=== PATIENT | male | born 1945 | race Caucasian/White ===

== ENCOUNTER 2018-06-08 13:24 | Inpatient (IN) | payer MEDICARE, OTHER, SELFPAY ==
[2018-06-08] VITALS (10 sets, daily range): BP systolic 127–165; BP diastolic 73–97; PULSE 71–100; RESP 16–18; TEMP 36.4–36.6; O2SAT 96–99; BMI 26.9; BMI 28.5
--- NOTE | 2018-06-08 14:09 | RAD_ITS ---
STUDY: X-RAY CHEST REASON FOR EXAM: Male, 72 years old. Syncopal episode TECHNIQUE: Single AP portable view of the chest. COMPARISON: January 19, 2016 chest x-ray FINDINGS: Lungs are underexpanded. The lungs appear grossly clear. There is no demonstrated pleural abnormality. Normal size heart. Normal mediastinum and yang. Normal visualized pulmonary arteries. Normal visualized aortic arch and descending thoracic aorta. There are diffuse degenerative changes of the visualized thoracic spine. Normal visualized ribs, clavicles, and shoulders. There is no demonstrated abnormality of the visualized soft tissue structures of the upper abdomen. RAD/Chest 1 View (Portable) IMPRESSION: Underexpansion of the lungs. No evidence of acute focal infiltrate. Electronically Signed: Gena Hernandez MD at 14:33 EDT Tel , Service support ,
--- NOTE | 2018-06-08 14:23 | EKG12_ITS ---
Test Reason : SYNCOPE Blood Pressure : / mmHG Vent. Rate : 073 BPM Atrial Rate : 073 BPM P-R Int : 188 ms QRS Dur : 110 ms QT Int : 404 ms P-R-T Axes : 061 -45 034 degrees QTc Int : 445 ms Normal sinus rhythm Left anterior fascicular block Abnormal ECG Confirmed by JARAD REYES, RADHA ([id number]), newspaper editor JYOTI ASTORGA ([id number]) on 06/10/2018 7:57:30 AM Referred By: Confirmed By:RADHA ABRAHAM MD
[2018-06-08 14:37] LABS: Absolute Lymphocyte Count 1.66 X10^3/ul (0.83-4.51); Absolute Neutrophil Count 4.5 X10^3/uL (2.0-7.7); Basophil# 0.03 X10^3/uL; Basophil% 0.4 % (0-1); Eosinophil# 0.27 X10^3/uL; Eosinophils% 3.8 % (0-5); Hematocrit 43.7 % (40-54); Hemoglobin 14.8 g/dl (13.0-16.5); Lymphocyte # 1.66 X10^3/ul (4.0); Lymphocyte % 23.6 % (19-41); Mean Corp Hgb Conc 33.9 g/gl (32-36); Mean Corpuscular Hgb 29.8 pg (27.0-32.0); Mean Corpuscular Volume 87.9 fL (80-94); Mean Platelet Vol. 9.4 fl (6.2-12.0); Monocyte% 7.1 % (0-10); Neutrophil # 4.51 X10^3/uL (2.7-7.7); Neutrophil % 64.4 % (47-70); POSITIVE COUNT NO; POSITIVE DIFFERENTIAL NO; POSITIVE MORPHOLOGY NO; Platelet Count 188 K/mm3 (150-450); RBC Distribution Width CV 13.5 % (11.6-14.6); Red Blood Count 4.97 M/mm3 (4.6-6.2)
[2018-06-08 14:52] LABS: Anion Gap 5 (5-15); BUN 16 mg/dL (7-18); BUN/Creat Ratio 17.2 RATIO (10-20); Calcium,Total 8.6 mg/dL (8.5-10.1); Chloride 105 mmol/L (98-107); Creatinine, Serum 0.93 mg/dL (0.70-1.30); EST Glomerular Filtration Rate 85 mL/min (>60); Est Glom Filt Rate - Afr Amer 103 mL/min (>60); Estimated Creatinine Clearance 76.31 ml/min; Glucose 101 mg/dL (74-106); Magnesium 2.1 mg/dL (1.6-2.6); Potassium 3.6 mmol/L (3.5-5.1); Sodium Level 139 mmol/L (136-145)
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
--- NOTE | 2018-06-08 15:21 | EKG12_ITS ---
Test Reason : ABDOMINAL Blood Pressure : / mmHG Vent. Rate : 088 BPM Atrial Rate : 088 BPM P-R Int : 186 ms QRS Dur : 108 ms QT Int : 390 ms P-R-T Axes : 044 -47 036 degrees QTc Int : 471 ms Normal sinus rhythm Left anterior fascicular block Abnormal ECG Confirmed by JARAD REYES, RADHA ([id number]), news videotape editor JYOTI ASTORGA ([id number]) on 06/10/2018 7:57:47 AM Referred By: Confirmed By:RADHA ABRAHAM MD
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
--- NOTE | 2018-06-08 16:32 | ECHOD_ITS ---
Reason For Study: Syncope Procedure This was a 2D Doppler, Color Flow transthoracic echocardiogram. Exam performed portable in patient room. Left Ventricle Normal LV size. Left ventricular systolic function is normal. The estimated ejection fraction is 60 %. Stage 1 diastolic dysfunction. No regional wall motion abnormalities noted. Right Ventricle Normal RV size. Normal systolic function. Atria Normal left atrium. Normal right atrium. Mitral Valve Normal mitral valve. Tricuspid Valve Normal tricuspid valve. Mild (1+) tricuspid valve insufficiency. Pulmonary artery systolic pressure is 30 mmHg. Aortic Valve Normal aortic valve. Trisinus/trileaflet aortic valve. Pulmonic Valve Normal pulmonic valve. Great Vessels Normal aortic root. The pulmonary artery is normal size. Normal inferior vena cava. Pericardium/Pleural No pericardial effusion. MMode/2D Measurements & Calculations LVIDd: 4.7 cm IVSd: 1.2 cm Ao root diam: 3.9 cm LVIDs: 3.0 cm LVPWd: 1.1 cm RVDd: 3.9 cm FS: 35.3 % LAV(MOD-bp): 40.9 ml LA A4 area: 15.6 cm2 LA dimension(2D): 4.0 cm LAV(MOD-bp) Indexed: 19.7 ml/m2 LAV(MOD-sp2): 39.4 ml LAV(MOD-sp4): 39.1 ml RA A4 area: 17.2 cm2 Time Measurements MV dec time: 0.17 sec Doppler Measurements & Calculations MV E max vik: 63.8 cm/sec Lat Peak E' Vik: 7.0 cm/sec Med Peak E' Vik: 7.6 cm/sec MV A max vik: 80.0 cm/sec E/E' lat: 9.2 E/E' med: 8.4 MV E/A: 0.80 Ao V2 max: 158.2 cm/sec LV V1 max: 106.0 cm/sec PA V2 max: 106.8 cm/sec Ao max P.0 mmHg LV V1 max P.5 mmHg PI end-d vik: 82.6 cm/sec TR max vik: 253.9 cm/sec TR max P.8 mmHg Interpretation Summary Normal LV size. Left ventricular systolic function is normal. The estimated ejection fraction is 60 %. Stage 1 diastolic dysfunction. Mild (1+) tricuspid valve insufficiency. Pulmonary artery systolic pressure is 30 mmHg. Ordering Physician: Eitan Novoa Referring Physician: Jason Bingham Performed By: Bernice Moctezuma, RIKCS, RVT
[2018-06-08 17:06] LABS: Thyroid Stim Hormone (TSH) 3.34 uIU/mL (0.358-3.74)
[2018-06-08] MEDS: Atorvastatin Calcium 10 MG Tablet PO (21:17)
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
[2018-06-08 23:05] LABS: Bedside Glucose 120 mg/dL (70-110)
--- NOTE | 2018-06-08 23:38 | NURSING ---
This rn in completing assessment, vitals and evenings meds at 2114. Pt with no needs or complaints. When this rn going to exit room, pt stated he felt funny again like he did before he was admitted to the hospital. Pt was dizzy, nauseated, pale and diaphoretic. This rn to get vitals again and when this rn turned around pt was unresponsive. [employer] was called, see [employer] documentation. Family at bedside and aware of plan of care for pt.
--- NOTE | 2018-06-08 23:44 | EKG12_ITS ---
Test Reason : Blood Pressure : / mmHG Vent. Rate : 082 BPM Atrial Rate : 082 BPM P-R Int : 188 ms QRS Dur : 108 ms QT Int : 394 ms P-R-T Axes : 050 -42 035 degrees QTc Int : 460 ms Normal sinus rhythm Left axis deviation Abnormal ECG When compared with ECG of 08-JUN-2018 21:30, MANUAL COMPARISON REQUIRED, DATA IS UNCONFIRMED Confirmed by JARAD REYES, RADHA ([id number]), assignment desk editor JYOTI ASTORGA ([id number]) on 06/10/2018 8:06:12 AM Referred By: Confirmed By:RADHA ABRAHAM MD
[2018-06-09] VITALS (20 sets, daily range): BP systolic 119–174; BP diastolic 69–99; PULSE 75–93; RESP 16–18; TEMP 36.5–37.1; O2SAT 94–97
[2018-06-09 05:10] LABS: Absolute Neutrophil Count 6.7 X10^3/uL (2.0-7.7); Basophil# 0.03 X10^3/uL; Basophil% 0.3 % (0-1); Eosinophil# 0.16 X10^3/uL; Eosinophils% 1.6 % (0-5); Hemoglobin 14.9 g/dl (13.0-16.5); Lymphocyte % 23.5 % (19-41); Mean Corp Hgb Conc 33.9 g/gl (32-36); Mean Corpuscular Hgb 29.3 pg (27.0-32.0); Mean Corpuscular Volume 86.4 fL (80-94); Mean Platelet Vol. 9.5 fl (6.2-12.0); Monocyte# 0.56 X10^3/uL; Monocyte% 5.7 % (0-10); Neutrophil # 6.71 X10^3/uL (2.7-7.7); Neutrophil % 68.7 % (47-70); Platelet Count 225 K/mm3 (150-450); RBC Distribution Width CV 13.6 % (11.6-14.6); RBC Distribution Width SD 42.4 fl (35.1-43.9); Red Blood Count 5.09 M/mm3 (4.6-6.2); White Blood Count 9.8 K/mm3 (4.4-11.0)
[2018-06-09 05:19] LABS: Anion Gap 7 (5-15); BUN 14 mg/dL (7-18); BUN/Creat Ratio 16.9 RATIO (10-20); Calcium,Total 8.5 mg/dL (8.5-10.1); Chloride 108 mmol/L (98-107); Creatinine, Serum 0.83 mg/dL (0.70-1.30); EST Glomerular Filtration Rate 98 mL/min (>60); Est Glom Filt Rate - Afr Amer 118 mL/min (>60); Estimated Creatinine Clearance 85.51 ml/min; Glucose 112 mg/dL (74-106); Potassium 3.6 mmol/L (3.5-5.1); Sodium Level 141 mmol/L (136-145)
[2018-06-09 05:41] LABS: POSITIVE COUNT NO; POSITIVE DIFFERENTIAL NO; POSITIVE MORPHOLOGY NO
[2018-06-09 05:53] LABS: International Normalized Ratio 1.2; Partial Thromboplast Time 27.7 Seconds (24.1-36.2); Prothrombin Time (Protime)PT. 15.2 SECONDS (11.7-14.9)
--- NOTE | 2018-06-09 05:55 | EKG12_ITS ---
Test Reason : CREDIT DEPARTMENT MANAGER Blood Pressure : / mmHG Vent. Rate : 084 BPM Atrial Rate : 084 BPM P-R Int : 184 ms QRS Dur : 112 ms QT Int : 382 ms P-R-T Axes : 057 -35 034 degrees QTc Int : 451 ms Sinus rhythm with occasional Premature ventricular complexes Left axis deviation Abnormal ECG When compared with ECG of 08-JUN-2018 16:01, MANUAL COMPARISON REQUIRED, DATA IS UNCONFIRMED Confirmed by JARAD REYES, RADHA ([id number]), editor trade journal JYOTI ASTORGA ([id number]) on 06/10/2018 8:07:48 AM Referred By: GARETH Confirmed By:RADHA ABRAHAM MD
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
[2018-06-09] MEDS: Lisinopril 5 MG Tablet PO (09:31)
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
--- NOTE | 2018-06-09 11:41 | CASEMGMT ---
Pt is out of the dept for pacer placement at this time. This RN CM will attempt CM assessment later. [place] RN CM
--- NOTE | 2018-06-09 12:05 | CL.IE_ITS ---
Patient: EDSON SHEPHERD Study Date: 06/09/2018 Performing: Guy Max MD : [id number] Age: 72 Gender: male PROCEDURES PERFORMED [id number] PACER INSERT+DUAL LEADS INDICATIONS Syncope Other second degree AV block PROCEDURE DETAILS The patient was brought to the Catheterization Lab in the postabsorptive nonsedated state. [facility] consent was obtained prior to the procedure. Local anesthetic was given subcutaneously to the le ft subclavian region with Lidocaine 2%. Incision was made to the left upper chest. Access was achieve d and a guidewire was advanced into the left subclavian vein. PPM ventricular lead was inserted / pos itioned to right ventricular septal wall. PPM ventricular lead testing performed. PPM ventricular jamal d testing performed. The sheath was then removed. A peel-away sheath was inserted into the left subcl michele vein. PPM atrial lead was inserted / positioned to the right atrial appendage. PPM atrial lead testing performed. The Ventricular PM lead sutured in place with 3-0 Silk. The Ventricular PM lead patterson tured in place with 3-0 Silk. Device pocket was irrigated with antibiotic. PPM generator was attached to the lead(s) and inserted into the pocket. The PPM generator was sutured in place with 3-0 Vicryl. Subcutaneous closure was completed with 3-0 Vicryl. Skin closure was completed with 4-0 V icryl. The patient tolerated the procedure well. Estimated Blood Loss: < 10 mls IMPLANTED / EX-PLANTED DEVICES IMPLANTED DEVICE(S): PPM Generator - [employer]: [employer], Model # [id number] , Serial # [id number] PPM Atrial lead - [employer]: [employer], Model # 7741 52 cm , Serial # [id number] PPM Ventricular lead - [employer]: [employer], Model # 7742 52 cm , Serial # [id number] DEVICE PARAMETERS ATRIAL LEAD PARAMETERS: P wave (mV) - 8.6 Current (mA) - 1.1 threshold (V) - .7 impedence (OHMS) - 660 VENTRICULAR LEAD PARAMETERS: R wave (mV) - 25 current (mA) - .5 threshold (V) - .5 impedence (OHMS) - 1026 DEVICE PARAMETERS: Mode - ddd lower rate - 60 upper rate - 130 rate response off CONCLUSIONS / RECOMMENDATIONS Device Conclusions: Successful implantation of a dual chamber pacemaker Device Recommendations: Follow up with Primary Care Physician PROCEDURE MEDICATIONS Versed 1 mg IV Fentanyl 50 mcg IV Versed 1 mg IV Oxygen: 2 L/min via nasal cannula Signed By Guy Max MD On 06/09/2018 12:04:44 Guy Max MD
[2018-06-09] MEDS: hydroCHLOROthiazide 25 MG Tablet PO (12:35)
[2018-06-09] MEDS: Fenofibrate 145 MG Tablet PO (12:35)
[2018-06-09] MEDS: Aspirin 81 MG TAB.CHEW PO (12:35)
[2018-06-09] MEDS: 0.9% Normal Saline 1,000 ML 15 ML IV (12:35)
[2018-06-09] MEDS: 0.9% NaCl Peripheral Flush Adult/Peds IV (12:35)
--- NOTE | 2018-06-09 13:54 | CASEMGMT ---
KAMLESH ELY assessment: Face to Face with patient for initial transition planning/care coordination assessment. KAMLESH ELY introduced self and role at [facility], pt voices understanding and consents to assessment at this time. Pt is sitting up in bed in no distress at this time. Pt is A/Ox4 at this time and answers all questions appropriately at this time. Pt's at bedside during assessment. Care providers, pharmacy, and demographics verified/updated at this time. PCP: [facility] Specialists: Pt states currently as no specialists. Preferred Pharmacy: [facility] Insurance: [facility] A/B, MMO Prescription Benefit: Yes Living Will/HPOA: Pt states has LW/HPOA and is aware that they are not currently on file at [facility] at this time. Pt states that his , Katelynn Saeed, is HPOA. LNOK: Katelynn Saeed, ; Manuel Saeed, son; Mira Walden, daughter Living Arrangements: Pt states lives with in 3 story home and states no concerns at home at this time. Pt is independent with ADL's. Transportation: Pt states drives self and states no transportation concerns at this time. DME/HHC: Pt states has the following DME: walker, grab bars, and shower chair. Pt states no need for any further DME at this time. Pt states no hx of HHC or SNF at this time. Pt states no concerns with going home at time of discharge. Pt states is retired. Pt states does not smoke but does drink ETOH occasionally. Pt states no further concerns/needs at this time. CM to follow for any further discharge planning/needs. Advised pt to ask for CM if any further questions/concerns/needs arise, voices understanding. Pt Goal: Home Plan[place] KAMLESH ELY
[2018-06-09 14:22] LABS: M R Staph aureus DNA By PCR Negative (Negative); Probe Check PASS; Specimen Processing Control PASS
[2018-06-09] MEDS: Atorvastatin Calcium 10 MG Tablet PO (21:49)
[2018-06-10 03:01] VITALS: PULSE 77
[2018-06-10 03:45] VITALS: BP 134/88; PULSE 64; RESP 18; TEMP 36.5; O2SAT 97
[2018-06-10 07:44] VITALS: PULSE 78
--- NOTE | 2018-06-10 08:07 | RAD_ITS ---
STUDY: X-RAY CHEST REASON FOR EXAM: Male, 72 years old. Syncope. Pacemaker placement. TECHNIQUE: PA and lateral views of the chest. COMPARISON: Comparison is made with prior study dated June 08, 2018. FINDINGS: EKG electrodes are seen. The lungs are clear and expanded. Scattered calcified granulomas. There is no demonstrated pleural abnormality. Normal size heart. A left-sided dual-chamber pacemaker is seen and in good position. Normal mediastinum and yang. Normal visualized pulmonary arteries. Normal visualized aortic arch and descending thoracic aorta. There are degenerative changes of the visualized thoracic spine. Normal visualized ribs, clavicles, and shoulders. There is no demonstrated abnormality of the visualized soft tissue structures of the upper abdomen. RAD/Chest PA and Lateral IMPRESSION: Status post left-sided dual chamber pacemaker placement. There is no evidence of pneumothorax. The pacemaker leads are in good position. Electronically Signed: Jimi Bone, at 11:26 EDT , Service support ,
--- NOTE | 2018-06-10 08:43 | PN.CARD_ITS ---
Subjectve: Patient seen and evaluated. Appears to be doing well. Objective: Vital Signs Temp Pulse Resp BP Pulse Ox 97.7 F L 78 18 134/88 H 97 06/10/18 03:45 06/10/18 07:44 06/10/18 03:45 06/10/18 03:45 06/10/18 03:45 Oxygen Delivery Method Room Air Weight: 198 lb 13.711 oz Body Mass Index (BMI) 28.5 Intake and Output for Last 24 Hours 06/08/18 06/09/18 06/10/18 23:59 23:59 23:59 Intake Total 480 / 480 300 / 300 Output Total 1550 / 1550 1050 / 1050 Balance 480 / 480 -1250 / -1250 -1050 / -1050 General: Awake, Alert, Oriented x 3 HEENT: PERRL, EOMI, Sclera Non Icteric Neck: Supple, Good ROM, No Lymph Node Enlargement Lungs: Clear to auscultation Cardiovascular: Regular Rhythm, Normal S1, Normal S2, No Murmurs, No Rubs, No Gallops Vascular: No Carotid Bruits, Normal Femoral Pulses, Normal Radial Pulses, Normal Dorsalis Pedal Pulse, Normal Posterior Tibial Pulses Abdomen: Bowel Sounds Present, Soft, Non Tender, No HSM, No Organomegaly Extremities: No Cyanosis, No Clubbing, No edema Neurological: No Focal Motor or Sensory Deficit Rhythm: EKG: ECHO: Stress Test: Cardiac Cath: PCI: CT Surgery: Holter monitor: EPS: PPM: CXR: Chest CT Scan: Medical Necessity - Tobacco Use Smoking Status: Former smoker Tobacco Use: Non-smoker Assessment/Plan 1. 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 Chest x-ray demonstrates adequate placement and pacer check this morning demonstrates appropriate numbers. Discharge for outpatient follow-up. * Thank you for allowing me to participate in the care of your patient. Please don't hesitate to call if any issues arise
--- NOTE | 2018-06-10 08:43 | PCM.DC.PACE ---
Discharge Diet: No Restrictions Discharge Activity: May Not Drive May resume sexual activity in: 2 weeks Call your doctor if your incision/area has: Continuous Slow Oozing, Sudden Increased Bleeding, Increased Pain/ Swelling, Increased Redness, Foul Smelling Discharge, Swelling at the incision site Call your doctor if you observe: Fever of 101 or Higher, Shortness of breath, Dizziness, Fainting spells, Swelling in the ankles, Chest pain, Prolonged hiccoughing, Increased palpitations (irregular heartbeat) Suture Line Care: Avoid Pulling/Pushing, Avoid Pinching/Bending Cleanse incision/area with: Do not get Incision Wet, Keep Dressing Clean & Dry Additional Dressing/Incision Instructions:: When dressing is removed, wash and dry incision. Keep covered with a light bandage if it is rubbing against your clothing. Do not cover the incision with an airtight bandage. Change the bandage daily. Do not remove steri strips. The strips will fall off on their own. Additional Instructions: Signs and Symptoms to Report to Your Doctor at Once - call your doctor's office or Doctor's Registry ([phone]) Call 241 or go to the nearest Emergency Department if you feel you need urgent care. *Infection (fever, increased redness or swelling at the incision site, drainage from the incision increased pain at the pacemaker site) *Shortness of breath *Dizziness *Fainting spells *Swelling in the ankles *Chest pain *Prolonged hiccoughing *Increased palpitaitons (irregular heartbeat) Medications: Take your pain medication as directed. Refer to your discharge instruction sheet for a list of medications you are to take. Allergies/Adverse Reactions: Allergies Penicillins Allergy (Verified 03/02/17 21:24) Anaphylaxis Medications to take at Discharge Aspirin [Aspirin, Baby] 81 mg PO DAILY@0800 05/15/15 Atorvastatin Calcium [Lipitor] 10 mg PO QHS 05/15/15 Hydrochlorothiazide [Hctz] 25 mg PO DAILY 05/15/15 Lisinopril [Zestril] 5 mg PO MOWEFR 05/15/15 Potassium Chloride [K-Dur] 10 meq PO DAILY 05/15/15 Primary Care Physician: Jason Bingham MD [Primary Care Provider] - Test Results: Test results from this visit will be discussed in further detail at your follow-up appointment, if applicable. When: [facility] June 11A Proposed Discharge Date: 06/10/18
[2018-06-10 09:59] VITALS: BP 145/92; PULSE 82; RESP 18; TEMP 36.8; O2SAT 98
[2018-06-10] MEDS: Aspirin 81 MG TAB.CHEW PO (10:01)
[2018-06-10] MEDS: hydroCHLOROthiazide 25 MG Tablet PO (10:01)
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
== END 2018-06-10 11:03 | disposition home or self-care (01) | DRG 244 ==
LOC: ED 15:20 → PCU 20:02
PROVIDERS: Hospitalist; Internal Medicine Cardiovascular Disease; Emergency Provider Emergency Medicine; Family Provider Family Medicine; PCP Family Medicine; Visit Provider Internal Medicine
DX: I44.1 Atrioventricular block, second degree (principal); E78.5 Hyperlipidemia, unspecified; I10 Essential (primary) hypertension; Z87.891 Personal history of nicotine dependence; R55 Syncope and collapse; I44.4 Left anterior fascicular block
CPT/HCPCS: 33208; 36415; 71045; 71046; 80048; 82962; 83735; 84443; 84484; 85025; 85610; 85730; 87641; 93005; 93306; 99152; 99153; 99285; J7030; J7050; A4216; C1894

== ENCOUNTER 2020-04-28 12:14 | Outpatient (RCR) | payer MEDICARE, OTHER, SELFPAY ==
[2019-07-14 12:43] VITALS: BMI 27.4
== END 2020-04-28 23:59 ==
LOC: IMMUN 12:14
PROVIDERS: PCP Family Medicine; Visit Provider Family Medicine
DX: Z23 Encounter for immunization (principal)
CPT/HCPCS: 0011A; 0012A; 91301

== ENCOUNTER → 2020-11-23 | Outpatient (CLI) | payer MEDICARE, OTHER, SELFPAY | END | disposition home or self-care (01) | PROVIDERS: Visit Provider Physician Assistant | DX: Z20.822 Contact with and (suspected) exposure to COVID-19 (principal) | CPT/HCPCS: 87635; U0005; U0003 ==

== ENCOUNTER 2022-04-29 23:27 | Emergency (ER) | payer MEDICARE, OTHER, SELFPAY ==
[2022-04-29 23:28] VITALS: BP 189/93; PULSE 87; RESP 16; TEMP 36.5; O2SAT 98; BMI 29.9
--- NOTE | 2022-04-29 23:47 | EKG12_ITS ---
Test Reason : ABD PAIN Blood Pressure : / mmHG Vent. Rate : 081 BPM Atrial Rate : 081 BPM P-R Int : 186 ms QRS Dur : 112 ms QT Int : 390 ms P-R-T Axes : 054 -49 048 degrees QTc Int : 453 ms Sinus rhythm with occasional Premature ventricular complexes Left anterior fascicular block Abnormal ECG Confirmed by JARAD REYES, RADHA ([id number]), material expeditor JYOTI ASTORGA ([id number]) on 05/01/2022 9:43:33 AM Referred By: MIYA Confirmed By:RADHA ABRAHAM MD
--- NOTE | 2022-04-29 23:49 | EX.ED.DYSGE1 ---
HPI History of Present Illness Chief Complaint: Abd Pain Informant: patient and spouse/S.O. Narrative Narrative: Patient presents with right-sided abdominal pain that started late yesterday evening. He states that it is on the right side and occasionally will move up to the right lower quadrant. It reminds him a little a little bit of his gallbladder pain but his gallbladder was taken out 6 years ago. He denies any radiation up into the chest. No radiation of the back. Most of the pain is in the right mid abdominal area and occasionally will also go lower. He has been eating and drinking and moving his bowels normally. No loss of appetite. No fevers or chills. No urinary symptoms. No other abdominal surgery other than the cholecystectomy. He has had colonoscopy but does not know if he has had diverticula. It does not sound like he is ever had diverticulitis. He still has his appendix. 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) Hyperlipidemia Menieres disease Syncope (06/09/18) Home Medications lisinopril 5 mg tablet 5 mg PO DAILY #90 tabs 07/11/18 [Rx Last Taken Unknown] fluticasone propionate 50 mcg/actuation nasal spray,suspension 1 spray intranasal DAILY PRN 07/14/19 [History Last Taken Unknown] hydrochlorothiazide 25 mg tablet 12.5 mg PO DAILY 07/14/19 [History Last Taken Unknown] lactobacillus combination no.8 3 billion cell capsule (Adult Probiotic) 3,000 mmu cells PO DAILY 07/14/19 [History Last Taken Unknown] multivit with min-folic acid-lutein 200 mcg-137.5 mcg chewable tablet (Adult Multivitamin (w-lutein)) tab PO 07/19/20 [History Last Taken Unknown] aspirin 81 mg tablet,delayed release (Adult Aspirin Regimen) 81 mg PO DAILY 08/29/21 [History Last Taken Unknown] atorvastatin 10 mg tablet 10 mg PO .qod 08/29/21 [History Last Taken Unknown] esomeprazole magnesium 20 mg capsule,delayed release (Nexium) 20 mg PO DAILY #30 caps 04/30/22 [Rx Last Taken Unknown] Allergy/AdvReac Type Severity Reaction Status Date / Time Penicillins Allergy Anaphylaxis Verified 08/29/21 10:03 Family History Other CAD (coronary artery disease) Surgical History History of permanent cardiac pacemaker placement (06/09/18) Social History Smoking Status: Former smoker ROS ROS ED Constitutional Constitutional ED: Denies chills, fever(s) or subjective ENT ENT ED: Denies rhinorrhea Cardiovascular Cardiovascular: Denies chest pain, palpitations or racing heartbeat Respiratory/Chest Respiratory/Chest: Reports other Details: Patient took a walk twice today and had no dyspnea or chest pain or exacerbation of his abdominal symptoms with the walk. ; Denies cough, dyspnea or dyspnea on exertion Gastrointestinal Gastrointestinal: Reports abdominal pain; Denies constipation, diarrhea, nausea or vomiting Genitourinary Genitourinary ED: Denies dysuria, hematuria or urinary frequency Musculoskeletal Musculoskeletal: Denies back pain or myalgias Integumentary Denies rash Endocrine Endocrinology: Denies polydipsia or polyuria Hematologic/Lymphatic Hematologic/Lymphatic: Reports other Details: Patient takes baby aspirin. No other anticoagulation ; Denies easy bleeding or easy bruising Allergic/Immunologic Allergic/Immunologic ED: Denies urticaria EXAM Physical Exam Narrative Exam Narrative: Patient is awake alert sitting comfortably in bed. He is nontoxic. HEENT shows no pallor. Mucous membranes are moist. Neck shows no JVD Lungs are clear bilaterally. No pain with a deep breath. No coughing. Heart is regular without murmur gallop or rub. He has a pacemaker palpable in the left upper chest. Distal pulses are normal x4. Abdominal exam shows slightly quieter bowel sounds than normal but still present. Abdomen does not seem to be notably distended to me. He has some mild tenderness in the right mid and even a hint toward the right lower quadrant. But no rebound or guarding. I feel no mass. I hear no bruit. shows no CVA or notable suprapubic tenderness Extremities show no edema. No mottling or little change in pulses or asymmetry. Neurologically he is awake alert appropriate with no obvious focal deficit. Const Vital Signs: 04/29/22 23:28 04/30/22 02:51 Temperature 97.7 F L Temperature Source Temporal Pulse Rate 87 87 Respiratory Rate 16 16 Blood Pressure 189/93 H 171/95 H Blood Pressure Mean 125 Pulse Ox 98 98 Oxygen Delivery Method Room Air MDM MDM MDM Narrative Medical decision making narrative: My independent interpretation of the CT shows some mild stranding near the pancreas. But he is not having pain in his back or epigastric area. Final reading by radiology shows possible pancreatitis or duodenitis also. No other acute process. Diverticulosis but no diverticulitis. His blood work shows minimal elevation of white count at 11.4 which is nonspecific. Hemoglobin platelets are normal. Electrolytes are normal other than minimally low potassium at 3.4 that should self correct. Glucose is just slightly up at 142. Total bili is 1.8 but rest of liver function test is normal. I added a lipase which came back as normal. Patient is actually quite comfortable. I think it is more likely that this represents some duodenitis. He is not a big nonsteroidal user. He takes just baby aspirin. We will start him on a proton pump inhibitor. He will have bland diet. If he develops worsening pain, vomiting, blood in the stool back pain fevers or other concerns he should return. He will need follow-up for elevation of the bilirubin that is a bit up at 1.8. Lab Data Attestation: I reviewed the patient's lab results. Labs: Laboratory Results - last 24 hr 04/29/22 04/29/22 04/29/22 00:33 23:55 23:55 WBC 11.4 H RBC 5.00 Hgb 14.8 Hct 44.9 MCV 89.8 MCH 29.6 MCHC 33.0 RDW Std Deviation 43.5 RDW Coeff of Sly 13.2 Plt Count 201 MPV 9.4 Immature Gran % (Auto) 0.400 Neut % (Auto) 70.4 H Lymph % (Auto) 16.0 L Allen % (Auto) 8.5 Eos % (Auto) 4.3 Baso % (Auto) 0.4 Absolute Neuts (auto) 8.0 H Absolute Lymphs (auto) 1.82 Nucleated RBC % 0 Sodium 138 Potassium 3.4 L Chloride 101 Carbon Dioxide 27.0 Anion Gap 10 BUN 13 Creatinine 0.79 Estim Creat Clear Calc 62.70 Est GFR (MDRD) Af Amer 123 Est GFR (MDRD) Non-Af 102 BUN/Creatinine Ratio 16.5 Glucose 142 H Calcium 9.1 Total Bilirubin 1.80 H AST 21 ALT 28 Alkaline Phosphatase 67 Total Protein 7.5 Albumin 3.6 Globulin 3.9 Albumin/Globulin Ratio 0.9 Lipase Urine Color Yellow Urine Clarity Clear Urine pH 7.0 Ur Specific Burke 1.005 Urine Protein 15 H Urine Glucose (UA) Normal Urine Ketones 5 H Urine Occult Blood Negative Urine Nitrite Negative Urine Bilirubin Negative Urine Urobilinogen Normal Ur Leukocyte Esterase Negative Urine RBC 0 SEEN Urine WBC 0 SEEN Ur Squamous Epith Cells 0 SEEN Urine Bacteria 0 SEEN Urine Mucus 0 SEEN 04/29/22 23:55 WBC RBC Hgb Hct MCV MCH MCHC RDW Std Deviation RDW Coeff of Sly Plt Count MPV Immature Gran % (Auto) Neut % (Auto) Lymph % (Auto) Allen % (Auto) Eos % (Auto) Baso % (Auto) Absolute Neuts (auto) Absolute Lymphs (auto) Nucleated RBC % Sodium Potassium Chloride Carbon Dioxide Anion Gap BUN Creatinine Estim Creat Clear Calc Est GFR (MDRD) Af Amer Est GFR (MDRD) Non-Af BUN/Creatinine Ratio Glucose Calcium Total Bilirubin AST ALT Alkaline Phosphatase Total Protein Albumin Globulin Albumin/Globulin Ratio Lipase 58 L Urine Color Urine Clarity Urine pH Ur Specific Burke Urine Protein Urine Glucose (UA) Urine Ketones Urine Occult Blood Urine Nitrite Urine Bilirubin Urine Urobilinogen Ur Leukocyte Esterase Urine RBC Urine WBC Ur Squamous Epith Cells Urine Bacteria Urine Mucus Radiography Diagnostic Testing: Clinical Impression(s) from Imaging Studies Abdomen/Pelvis CT 04/30/22 23:47 IMPRESSION: 1. Findings suggesting acute pancreatitis and/or duodenitis. Correlate clinically. 2. Duodenal and colonic diverticulosis. 3. Other nonurgent findings within body of report. Electronically Signed: Helio Barajas MD at 1:01 EST , EKG Initial EKG: Comments: EKG done for upper abdominal pain and elderly shows a normal sinus rhythm with overall rate of 81. There is occasional PVC. No acute ST elevation or depression. UT interval is normal. QRS duration is getting a little bit long and 112 ms. QTc is normal at 453 ms. Discharge Plan Triage Chief Complaint: Abd Pain ED Provider: Neel Romano Dx/Rx/DC Orders Clinical Impression: Duodenitis, Abdominal pain Instructions: Duodenitis Prescriptions: New esomeprazole magnesium [Nexium] 20 mg capsule,delayed release(DR/EC) 20 mg PO DAILY Qty: 30 0RF No Action lisinopril 5 mg tablet 5 mg PO DAILY Qty: 90 3RF Adult Probiotic 3 billion cell capsule 3,000 mmu cells PO DAILY Rx Instructions: administer with a meal fluticasone propionate 50 mcg/actuation spray,suspension 1 spray INTRANASAL DAILY PRN Rx Instructions: administer into each nostril [id number] acid-lutein [Adult Multivitamin (w-lutein)] 200-137.5 mcg tablet,chewable PO aspirin [Adult Aspirin Regimen] 81 mg tablet,delayed release (DR/EC) 81 mg PO DAILY hydrochlorothiazide 25 mg tablet 12.5 mg PO DAILY atorvastatin 10 mg tablet 10 mg PO .qod Primary Care Provider: Jason Bingham Referrals: Jason Bingham MD [Primary Care Provider] - 3-5 Days Disposition Disposition: Home, Self Care Discharge Date/Time: 04/30/22 02:51
[2022-04-30 00:05] LABS: Absolute Lymphocyte Count 1.82 X10^3/uL (0.83-4.51); Basophil# 0.05 X10^3/uL; Basophil% 0.4 % (0-1); Eosinophil# 0.49 X10^3/uL; Eosinophils% 4.3 % (0-5); Hematocrit 44.9 % (40-54); Hemoglobin 14.8 g/dL (13.0-16.5); Lymphocyte # 1.82 X10^3/ul (0.83-4.51); Mean Corpuscular Hgb 29.6 pg (27.0-32.0); Mean Corpuscular Volume 89.8 fL (80-94); Mean Platelet Vol. 9.4 fl (6.2-12.0); Monocyte# 0.97 X10^3/uL; Monocyte% 8.5 % (0-10); NRBC Flagged by Analyzer 0 % (0-5); Neutrophil # 7.98 X10^3/uL (2.7-7.7); Neutrophil % 70.4 % (47-70); Platelet Count 201 K/mm3 (150-450); RBC Distribution Width CV 13.2 % (11.6-14.6); RBC Distribution Width SD 43.5 fl (35.1-43.9); White Blood Count 11.4 K/mm3 (4.4-11.0)
[2022-04-30 00:24] LABS: ALB/GLOB Ratio 0.9 RATIO (0.9-2.4); AST(SGOT) 21 U/L (15-37); Alanine Aminotransfer ALT/SGPT 28 U/L (16-61); Albumin, Serum 3.6 g/dL (3.2-5.0); Alkaline Phosphatase 67 U/L (45-117); Anion Gap 10 (5-15); BUN 13 mg/dL (7-18); BUN/Creat Ratio 16.5 RATIO (10-20); Calcium,Total 9.1 mg/dL (8.5-10.1); Chloride 101 mmol/L (98-107); Creatinine, Serum 0.79 mg/dL (0.70-1.30); EST Glomerular Filtration Rate 102 mL/min (>60); Est Glom Filt Rate - Afr Amer 123 mL/min (>60); Globulin 3.9 g/dL (2.2-4.2); Glucose 142 mg/dL (74-106); Potassium 3.4 mmol/L (3.5-5.1); Protein, Total 7.5 g/dL (6.4-8.2); Sodium Level 138 mmol/L (136-145)
[2022-04-30 00:38] LABS: Bacteria 0 SEEN /hpf (None Seen); Mucous, Urine 0 SEEN /hpf (<or=2+); Red Blood Cells-Urine 0 SEEN /hpf (0-5); Squamous Epithelial Cells - UA 0 SEEN /hpf (0-5); White Blood Cells 0 SEEN /hpf (0-5)
[2022-04-30 00:39] LABS: Color, Urine Yellow (Yellow); Glucose, Dipstick Normal (Normal); Ketone-Dipstick 5 mg/dl (Negative); Leukocyte Esterase-Dipstick Negative /ul (Negative); Nitrite-Dipstick Negative (Negative); Occult Blood-Urine Negative /ul (Negative); Protein-Dipstick 15 mg/dl (Negative); Specific Gravity, Urine 1.005 (1.002-1.030); Urine Bilirubin Dipstick Negative (Negative); Urine Clarity Clear (Clear); Urine Urobilinogen Normal (Normal)
[2022-04-30 01:26] LABS: Lipase 58 U/L (73-393)
[2022-04-30 02:51] VITALS: BP 171/95; PULSE 87; RESP 16; O2SAT 98
--- NOTE | 2022-04-30 23:47 | CT_ITS ---
INDICATION: right sided pain EXAMINATION: CT Abdomen And Pelvis W/ Contrast Injection TECHNIQUE: Helically acquired images were obtained of the abdomen and pelvis following IV contrast. 2-D reconstructions reviewed. A radiation dose optimization technique was used for this scan. IV Contrast dosage and agent: 100 cc [id number] Oral contrast: None. COMPARISON: Unenhanced CT abdomen and pelvis from 03/02/2017 FINDINGS: LOWER CHEST: Minimal atelectatic changes noted. Normal size heart with AICD leads. LIVER: Benign punctate granulomatous calcifications within liver. No concerning lesion. GALLBLADDER AND BILIARY TREE: Status post cholecystectomy. No significant biliary ductal dilation. PANCREAS: Fat stranding and edema adjacent to proximal pancreas and duodenum. SPLEEN: Benign punctate granulomatous calcifications within spleen. No concerning lesion. ADRENAL GLANDS: Unremarkable. KIDNEYS AND URETERS: Normal renal size and position. No hydronephrosis. No concerning lesion. Couple small bilateral simple appearing renal cysts requiring no additional follow-up. PERITONEUM: No peritoneal free air or significant free fluid. No other fluid collection. RETROPERITONEUM: Trace peripancreatic retroperitoneal fluid. BOWEL: Mild fat stranding adjacent to duodenum and proximal pancreas. Diverticulum along third segment of duodenum measures 2.4 cm diameter. Scattered small noninflamed colonic diverticula. No bowel obstruction. Normal appendix within right lower quadrant. LYMPH NODES: No enlarged mesenteric or retroperitoneal lymph nodes. VESSELS: Atherosclerosis with no abdominal aortic aneurysm. Major vessels are patent. URINARY BLADDER: Unremarkable as visualized. REPRODUCTIVE ORGANS: Enlarged prostate gland measures 5.5 cm AP diameter. ABDOMINAL WALL: Left larger than right bilateral inguinal fat hernias. BONES: Skeletal degenerative changes with chronic grade 1 anterolisthesis of L4 over L5. CT/Abdomen/Pelvis W IV Cont ONLY IMPRESSION: 1. Findings suggesting acute pancreatitis and/or duodenitis. Correlate clinically. 2. Duodenal and colonic diverticulosis. 3. Other nonurgent findings within body of report. Electronically Signed: Helio Barajas MD at 1:01 EST ,
== END 2022-04-30 02:51 | disposition home or self-care (01) ==
PROVIDERS: Emergency Provider Emergency Medicine; PCP Family Medicine; Visit Provider Emergency Medicine
DX: K29.80 Duodenitis without bleeding (principal); Z87.891 Personal history of nicotine dependence; K57.30 Diverticulosis of large intestine without perforation or abscess without bleeding; E78.5 Hyperlipidemia, unspecified; I10 Essential (primary) hypertension; Z90.49 Acquired absence of other specified parts of digestive tract; Z79.82 Long term (current) use of aspirin
CPT/HCPCS: 74177; 80053; 81001; 83690; 85025; 93005; 96361; 96365; 99283; J7030; J7050; Q9967; A4216; J3490

== ENCOUNTER → 2023-06-28 | Outpatient (CLI) | payer MEDICARE, OTHER, SELFPAY ==
--- NOTE | 2023-06-28 14:20 | CT_ITS ---
STUDY: LOW DOSE CT LUNG CANCER SCREENING REASON FOR EXAM: Male, 77 years old. Personal history of nicotine dependence. Former smoker. Patient smoked 1 pack per day for 40 years. RADIATION DOSAGE (If Supplied By Facility): CTDIvol = ( 2.39 ) mGy, DLP = ( 72.36 ) mGycm TECHNIQUE: No contrast was administered. Low dose technique was utilized (average mAS-38 and kVp 120). 1.25 mm axial source images with a slice interval of 1.25-mm were reconstructed in lung windows. 2.5 mm axial source images with a slice interval of 2.5-mm were reconstructed in lung windows. 5.0 mm axial source images with a slice interval of 5.0-mm were reconstructed in soft tissue windows. COMPARISON: None. NODULES: No suspicious nodules are seen. Emphysema: No significant emphysematous changes are present. Endobronchial lesion: None Aorta: Atherosclerotic plaque formation of the aortic arch. CORONARY ARTERIES: Coronary artery calcification is seen. Heart: Left-sided dual-chamber pacemaker is seen. Mild degree of anterior pericardial thickening. Pulmonary artery: Unremarkable Mediastinal nodes: Calcified subcarinal lymph nodes and left hilar lymph nodes. Other chest and abdominal findings: Calcified splenic granulomas. CT/Low Dose CT Lung Screening IMPRESSION: Lung-RADS category 2 - Continue annual screening with LDCT in 12 months. IMPORTANT NOTES FOR USE: ACR Lung-RADS Version 1.1 Assessment Categories Release Date: 2018 Category: Coded 0-4 bases on nodule(s) with highest degree of suspicion. Negative screen is defined as categories 1 and 2; a positive screen is defined as categories 3 and 4. Category 3 and 4A nodules that are unchanged on interval CT should be coded as category 2, and individuals returned to screening in 12 months. Category 4X: Category 3 or 4 nodules with additional imaging findings that increase the suspicion of lung cancer, such as spiculation, no suspicious nodules are seen. That doubles in size in 1 year, enlarged lymph notes, etc. Category Modifiers: S (significant finding unrelated to lung cancer) Electronically Signed: Jimi Bnoe MD at 8:46 EDT ,
== END | disposition home or self-care (01) ==
LOC: CT 14:19
PROVIDERS: PCP Family Medicine; Referring Provider Physician Assistant; Visit Provider Physician Assistant
DX: Z12.2 Encounter for screening for malignant neoplasm of respiratory organs (principal); Z87.891 Personal history of nicotine dependence
CPT/HCPCS: 71271